=== PATIENT | male | born 1965 | race Caucasian/White ===

== ENCOUNTER 2016-09-04 19:26 | Emergency (ER) | payer OTHER ==
[2016-09-04] MEDS ORDERED: ACETAMINOPHEN 325 MG TABLET ONE (20:54)
[2016-09-04] MEDS ORDERED: DEXAMETHASONE 4 MG TABLET ONE (20:54)
== END 2016-09-04 21:23 | disposition home or self-care (01) ==
LOC: ED 19:26
DX: M54.5 Low back pain (principal); W17.89XA Other fall from one level to another, initial encounter; Y92.9 Unspecified place or not applicable; F17.210 Nicotine dependence, cigarettes, uncomplicated
CPT/HCPCS: 99283 ×2; A9270 ×2